=== PATIENT | male | born 1955 | race Caucasian/White ===

== ENCOUNTER 2017-04-05 11:36 | Inpatient (IN) | payer BC, MEDICAID ==
[~2017-04-05] VITALS: Ht 172.7 cm; Wt 95.7 kg
[2017-04-05 11:36] VITALS: BP_SYST 153
[2017-04-05] MEDS ORDERED: NACL 0.9% 1,000 ML IV ONE (12:10)
[2017-04-05 12:41] LABS: BASOPHILS % (AUTO) 0.6 % (0.0-2.0); EOSINOPHILS # (AUTO) 0.2 K/uL (0.0-0.4); EOSINOPHILS % (AUTO) 2.9 % (0.0-4.0); HEMATOCRIT 45.6 % (36-54); HEMOGLOBIN 14.8 g/dL (14.0-18.0); LYMPHOCYTES # (AUTO) 1.3 K/uL (1.0-5.5); LYMPHOCYTES % (AUTO) 15.4 % (20.5-51.5); MEAN CORPUSCULAR HEMOGLOBIN 29 pg (27-31); MEAN CORPUSCULAR HGB CONC 33 % (32-36); MEAN CORPUSCULAR VOLUME 90 fL (79.0-98.0); MONOCYTES # (AUTO) 0.6 K/uL (0.0-1.0); MONOCYTES % (AUTO) 7.6 % (1.7-9.3); NEUTROPHILS # (AUTO) 6.1 K/uL (1.8-7.7); NEUTROPHILS % (AUTO) 73.5 % (40.0-70.0); PLATELET COUNT (AUTO) 207 K/uL (130-430); RED BLOOD CELL COUNT(AUTO) 5.04 MIL/uL (4.2-6.2); RED CELL DISTRIBUTION WIDTH 12.2 % (9.0-15.0); WHITE BLOOD COUNT (AUTO) 8.2 K/uL (4.8-10.8)
[2017-04-05 12:54] LABS: CALCIUM 9.1 mg/dL (8.4-11.0); CREATININE 1.39 mg/dL (0.55-1.30); POTASSIUM 4.2 mmol/L (3.5-5.1)
[2017-04-05 12:58] LABS: ALBUMIN 3.2 g/dL (3.4-4.8); TOTAL BILIRUBIN 0.6 mg/dL (0.0-1.0)
[2017-04-05] MEDS ORDERED: INSULIN REGULAR, HUMAN 10 UNITS/0.1 ML INJ SUBCUT ONE (15:30)
[2017-04-05] MEDS ORDERED: INSULIN REGULAR, HUMAN 10 UNITS/0.1 ML INJ ONE (15:42)
[2017-04-05 15:49] VITALS: BP_SYST 172
[2017-04-05 15:57] VITALS: BP_SYST 172
[2017-04-05 16:28] VITALS: BP_SYST 158
[2017-04-05] MEDS ORDERED: FAMOTIDINE 20 MG TABLET PO SCH (18:00)
[2017-04-05] MEDS: cefTRIAXone 1 GM in D5W 50 ML IV SCH (18:00)
[2017-04-05] MEDS ORDERED: ACETAMINOPHEN 325 MG TABLET PO PRN (18:00)
[2017-04-05] MEDS ORDERED: CARV25TA55 PO (18:10)
[2017-04-05] MEDS ORDERED: PRO40 PO (18:10)
[2017-04-05] MEDS ORDERED: LIP40 PO (18:10)
[2017-04-05] MEDS ORDERED: FURO-150 PO (18:10)
[2017-04-05] MEDS ORDERED: METF1000 PO (18:10)
[2017-04-05] MEDS: cloNIDine HCL 0.1 MG TABLET PO PRN (18:58)
[2017-04-05] MEDS ORDERED: cefTRIAXone 1 GM VIAL ONE (19:20)
[2017-04-05] MEDS ORDERED: ZOLPIDEM TARTRATE 5 MG TABLET PO PRN (19:30)
[2017-04-05] MEDS ORDERED: PANTOPRAZOLE SODIUM 40 MG TAB PO SCH (19:30)
[2017-04-05 19:44] LABS: THYROID STIMULATING HORMONE 0.86 uIu/mL (0.36-3.74)
[2017-04-05 21:15] VITALS: BP_SYST 144
[2017-04-05] MEDS: INSULIN ASPART 100 UNITS/ML, 10 ML VIAL (NovoLOG) SUBCUT PRN (21:39)
[2017-04-05] MEDS: IPRATROPIUM/ALBUTEROL SULFATE 3 ML AMPUL.NEB INH SCH (22:24)
[2017-04-05 22:29] VITALS: BP_SYST 144
[2017-04-06 01:36] VITALS: BP_SYST 158
[2017-04-06 02:49] LABS: BILIRUBIN,URINE NEGATIVE (NEGATIVE); BLOOD, URINE NEGATIVE (NEGATIVE); CLARITY/URINE CLEAR (CLEAR); COLOR,URINE YELLOW (YELLOW); GLUCOSE,URINE 3+ (NEGATIVE); KETONES,URINE NEGATIVE (NEGATIVE); LEUKOCYTE ESTERASE ,URINE NEGATIVE (NEGATIVE); NITRITE, URINE NEGATIVE (NEGATIVE); PROTEIN URINE NEGATIVE (NEGATIVE); UROBILINOGEN,URINE 0.2 (0.2-1.0)
[2017-04-06 03:01] LABS: BACTERIA,URINE MODERATE /HPF (None Seen); CALCIUM OXALATE CRYSTALS,UR 0-10 /HPF (None Seen); HYALINE CASTS, URINE 0-10 /LPF (None Seen); MUCUS,URINE 1+ /LPF (None Seen); YEAST,URINE Few /HPF (None Seen)
[2017-04-06 03:29] VITALS: BP_SYST 160
[2017-04-06 06:26] LABS: BASOPHILS % (AUTO) 0.4 % (0.0-2.0); EOSINOPHILS # (AUTO) 0.4 K/uL (0.0-0.4); EOSINOPHILS % (AUTO) 4.5 % (0.0-4.0); HEMATOCRIT 44.5 % (36-54); HEMOGLOBIN 14.7 g/dL (14.0-18.0); LYMPHOCYTES # (AUTO) 1.6 K/uL (1.0-5.5); LYMPHOCYTES % (AUTO) 19.6 % (20.5-51.5); MEAN CORPUSCULAR HEMOGLOBIN 30 pg (27-31); MEAN CORPUSCULAR HGB CONC 33 % (32-36); MEAN CORPUSCULAR VOLUME 90 fL (79.0-98.0); MONOCYTES # (AUTO) 0.7 K/uL (0.0-1.0); MONOCYTES % (AUTO) 8.4 % (1.7-9.3); NEUTROPHILS # (AUTO) 5.4 K/uL (1.8-7.7); NEUTROPHILS % (AUTO) 67.1 % (40.0-70.0); PLATELET COUNT (AUTO) 205 K/uL (130-430); RED BLOOD CELL COUNT(AUTO) 4.95 MIL/uL (4.2-6.2); RED CELL DISTRIBUTION WIDTH 12.2 % (9.0-15.0); WHITE BLOOD COUNT (AUTO) 8.1 K/uL (4.8-10.8)
[2017-04-06] MEDS: INSULIN ASPART 100 UNITS/ML, 10 ML VIAL (NovoLOG) SUBCUT PRN ×4 (06:33→20:37)
[2017-04-06 07:09] LABS: CALCIUM 8.8 mg/dL (8.4-11.0); CREATININE 1.22 mg/dL (0.55-1.30); POTASSIUM 4.2 mmol/L (3.5-5.1)
[2017-04-06] MEDS: IPRATROPIUM/ALBUTEROL SULFATE 3 ML AMPUL.NEB INH SCH ×3 (07:39→23:24)
[2017-04-06 08:05] VITALS: BP_SYST 127
[2017-04-06] MEDS: PANTOPRAZOLE SODIUM 40 MG TAB PO SCH (08:42)
[2017-04-06 12:14] VITALS: BP_SYST 157
[2017-04-06 16:21] VITALS: BP_SYST 155
[2017-04-06] MEDS: metFORMIN HCL 500 MG TABLET PO SCH (17:29)
[2017-04-06] MEDS: cefTRIAXone 1 GM in D5W 50 ML IV SCH (17:29)
[2017-04-06 19:38] VITALS: BP_SYST 158
[2017-04-06] MEDS: cloNIDine HCL 0.1 MG TABLET PO PRN (20:29)
[2017-04-07 00:36] VITALS: BP_SYST 137
[2017-04-07 03:32] VITALS: BP_SYST 141
[2017-04-07] MEDS: INSULIN ASPART 100 UNITS/ML, 10 ML VIAL (NovoLOG) SUBCUT PRN ×2 (06:25→12:12)
[2017-04-07] MEDS: IPRATROPIUM/ALBUTEROL SULFATE 3 ML AMPUL.NEB INH SCH (07:40)
[2017-04-07 09:00] VITALS: BP_SYST 130
[2017-04-07] MEDS: metFORMIN HCL 500 MG TABLET PO SCH (09:32)
[2017-04-07] MEDS: PANTOPRAZOLE SODIUM 40 MG TAB PO SCH (09:32)
[2017-04-07 11:28] VITALS: BP_SYST 154
[2017-04-07 11:46] VITALS: BP_SYST 155
[2017-04-07 14:12] VITALS: BP_SYST 148
[2017-04-07] MEDS ORDERED: FAMO20TA8 PO (14:31)
[2017-04-07] MEDS ORDERED: CARV25TA55 PO (14:31)
[2017-04-07] MEDS ORDERED: AMOX-426 PO (14:32)
[2017-04-07] MEDS ORDERED: FURO-150 PO (14:32)
[2017-04-07] MEDS ORDERED: LISI10TA5 PO (14:32)
[2017-04-07] MEDS ORDERED: GLU850 PO (14:33)
[2017-04-07] MEDS ORDERED: SITA100T7 PO (14:33)
[2017-04-07] MEDS ORDERED: ALBMDI INH (14:34)
== END 2017-04-07 15:10 | disposition home or self-care (01) | DRG 194 ==
LOC: SED 11:36 → STU 15:16
PROVIDERS: ADMIT Internal Medicine; ATTEND Internal Medicine
DX: J18.9 Pneumonia, unspecified organism (principal); N17.9 Acute kidney failure, unspecified; E11.22 Type 2 diabetes mellitus with diabetic chronic kidney disease; I13.0 Hypertensive heart and chronic kidney disease with heart failure and stage 1 through stage 4 chronic kidney disease, or unspecified chronic kidney disease; I50.9 Heart failure, unspecified; L03.811 Cellulitis of head [any part, except face]; E11.65 Type 2 diabetes mellitus with hyperglycemia; I25.10 Atherosclerotic heart disease of native coronary artery without angina pectoris; N18.9 Chronic kidney disease, unspecified; D18.00 Hemangioma unspecified site; I25.2 Old myocardial infarction; Z87.891 Personal history of nicotine dependence; Z95.5 Presence of coronary angioplasty implant and graft; Z79.899 Other long term (current) drug therapy
CPT/HCPCS: 36415; 71010; 71020-TC; 76700-TC; 80048; 80053; 81000-TC; 82150-TC; 82962; 83605; 83690-TC; 83880; 84443-TC; 84484; 85025; 85610-TC; 85730-TC; 87040-TC; 93005; 94640; 94760; 96360; 96372; 99285; J0696; J1815; J7030; J7050; J7060

== ENCOUNTER 2017-10-01 14:24 | Inpatient (IN) | payer MEDICAID ==
[~2017-10-01] VITALS: Ht 172.7 cm; Wt 108.9 kg
[2017-10-01 14:24] VITALS: BP_SYST 160
[~2017-10-01 14:24] MED LIST: ALBMDI INH; ASPI-862 PO; CARV12.548 PO; FURO-149 PO; LISI-652; METF1000 PO; PRO40 PO; SPIR50TA PO
--- NOTE | 2017-10-01 14:24 | NUR ---
Pt placed to ER bed 04, triaged at bedside, to gown, to monitor. Pt c/o Left-sided C/P with cough and green sputum x 1 week. Pt also c/o upper abdominal pain without N/V/D.
--- NOTE | 2017-10-01 14:30 | NUR ---
Dr. Suh at bedside to assess pt.
--- NOTE | 2017-10-01 15:00 | NUR ---
No needs verbalized. VSS.
[2017-10-01 15:18] LABS: BASOPHILS # (AUTO) 0.1 K/uL (0.0-0.2); BASOPHILS % (AUTO) 0.8 % (0.0-2.0); EOSINOPHILS # (AUTO) 0.2 K/uL (0.0-0.4); EOSINOPHILS % (AUTO) 2.8 % (0.0-4.0); HEMATOCRIT 42.3 % (36-54); HEMOGLOBIN 14.1 g/dL (14.0-18.0); LYMPHOCYTES # (AUTO) 1.6 K/uL (1.0-5.5); MEAN CORPUSCULAR HEMOGLOBIN 30 pg (27-31); MEAN CORPUSCULAR HGB CONC 33 % (32-36); MEAN CORPUSCULAR VOLUME 90 fL (79.0-98.0); MONOCYTES # (AUTO) 0.7 K/uL (0.0-1.0); MONOCYTES % (AUTO) 10.9 % (1.7-9.3); NEUTROPHILS % (AUTO) 61.5 % (40.0-70.0); PLATELET COUNT (AUTO) 229 K/uL (130-430); RED BLOOD CELL COUNT(AUTO) 4.69 MIL/uL (4.2-6.2); RED CELL DISTRIBUTION WIDTH 12.9 % (9.0-15.0); WHITE BLOOD COUNT (AUTO) 6.6 K/uL (4.8-10.8)
--- NOTE | 2017-10-01 15:42 | NUR ---
No needs verbalized at this time.
[2017-10-01 15:49] LABS: BILIRUBIN,URINE NEGATIVE (NEGATIVE); BLOOD, URINE NEGATIVE (NEGATIVE); CLARITY/URINE CLEAR (CLEAR); COLOR,URINE YELLOW (YELLOW); GLUCOSE,URINE 3+ (NEGATIVE); KETONES,URINE NEGATIVE (NEGATIVE); LEUKOCYTE ESTERASE ,URINE NEGATIVE (NEGATIVE); NITRITE, URINE NEGATIVE (NEGATIVE); PH,URINE 5.5 (5.0-8.0); PROTEIN URINE NEGATIVE (NEGATIVE); UROBILINOGEN,URINE 0.2 (0.2-1.0)
[2017-10-01 15:56] LABS: BARBITURATE, URINE NEGATIVE (NEG <=200); BENZODIAZEPINE, URINE NEGATIVE (NEG <=150); CANNABINOID, URINE NEGATIVE (NEG <=50); COCAINE, URINE NEGATIVE (NEG <=150); METHAMPHETAMINES SCREEN,URINE NEGATIVE (NEG <=500); OPIATE, URINE NEGATIVE (NEG <=100); PHENCYCLIDINE SCREEN,URINE NEGATIVE (NEG <=25); UR TRICYCLIC ANTIDEPRESSANTS NEGATIVE (NEG <=300); URINE AMPHETAMINE NEGATIVE (NEG <=500); URINE METHADONE NEGATIVE (NEG <=200); URINE OXYCODONE SCREEN NEGATIVE (NEG <=100); URINE PROPOXYPHENE SCREEN NEGATIVE (NEG <=300)
[2017-10-01 16:09] LABS: ANION GAP 5 (5-15); CALCIUM 9.1 mg/dL (8.4-11.0); CHLORIDE 100 mmol/L (98-107); CREATININE 1.28 mg/dL (0.55-1.30); GLUCOSE 343 mg/dL (70-99); POTASSIUM 3.9 mmol/L (3.5-5.1); SODIUM SERUM 132 mmol/L (136-145); UREA NITROGEN, BLOOD 22 mg/dL (8-21)
[2017-10-01 16:12] LABS: GFR AFRICAN AMERICAN 73 mL/min (>90)
[2017-10-01 16:17] LABS: ALANINE AMINOTRANSFERASE 56 U/L (12-78); ALBUMIN 3.3 g/dL (3.4-4.8); ASPARTATE AMINOTRANSFERASE 34 U/L (10-37); LIPASE 154 U/L (73-393); TOTAL BILIRUBIN 0.6 mg/dL (0.0-1.0)
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
--- NOTE | 2017-10-01 16:24 | NUR ---
Per patients facesheet, pt has [facility]/ [employer] insurance and no primary physician. Paged pharmacy innovation assistant physician, Dr Falcon for admission.
[2017-10-01] MEDS ORDERED: SITA100T7 PO (16:27)
--- NOTE | 2017-10-01 16:27 | NUR ---
Med Rec updated with information from past visit. Pt was able to recall medications and verifiy.
[2017-10-01] MEDS ORDERED: ASPIRIN 325 MG TABLET PO ONE (16:30)
[2017-10-01] MEDS ORDERED: NS 500 ML IV ONE (16:30)
[2017-10-01 16:36] LABS: BACTERIA,URINE FEW /HPF (None Seen); MUCUS,URINE None Seen /LPF (None Seen); RBC,URINE 0-3 /HPF (0-3)
--- NOTE | 2017-10-01 16:40 | NUR ---
Patient c/o pain to left chest, that increases with movement, breathing, and inspiration, Dr Suh notified of patinet's complaint. meat butcher continues to show, sinus rhythm without difficulty. IV infusing without difficulty, no redness or swelling noted at site. Awaiting call back from admitting
--- NOTE | 2017-10-01 16:46 | NUR ---
Paging Dr. Falcon for a second time. Spoke with Coco.
--- NOTE | 2017-10-01 17:13 | NUR ---
Paged Dr. Falcon for a third time. Spoke with Debbie
--- NOTE | 2017-10-01 17:21 | NUR ---
Paged Dr. Falcon for a forth time for admission. Spoke with Olga.
--- NOTE | 2017-10-01 17:32 | NUR ---
Paged Dr. Falcon for the fifth time. Spoke with Olga.
--- NOTE | 2017-10-01 17:45 | NUR ---
Patient will be admitted to care of Dr Falcon. Admitted to tele unit. Will go to room 106-A. Belongings list completed. Summary report printed. Report will be given at bedside. Transfer to tele room 106-A via ACLS protocol. Licensed nurse present. IV present no signs or symptoms of infiltration.
--- NOTE | 2017-10-01 17:50 | NUR ---
ADMISSION NOTE Received patient from ER via lacho, received report from INFORMATICA MDM DEVELOPER. Patient admitted with diagnosis of CHF. Patient oriented to hospital routine, call light, toileting and safety-patient verbalized understanding.
[2017-10-01 17:57] VITALS: BP_SYST 182
--- NOTE | 2017-10-01 18:10 | NUR ---
ADMISSION: The patient, LUX ELDER, 61 y/o, M admitted by SHANELLE SANDHU MD, was given written information regarding hospital policies, unit procedures and contact persons. Valuables were checked and .
--- NOTE | 2017-10-01 18:12 | NUR ---
CARDIOLOGY CONSULT WAS CALLED TO DR SPARKS, RE: CHF. SPOKE TO HOWIE
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
--- NOTE | 2017-10-01 18:45 | NUR ---
PT CARE TRANSFER / CLOSING NOTE REPORT IS RECEIVED FROM ADMISSION NURSE. PT IS AWAKE, ALERT, AND ORIENTED X4. PT DENIES ANY PAIN. NO SIGNS OR SYMPTOMS OF DISTRESS OR SOB NOTED. PT RECEIVE DINNER TRAY AND IS CURRENTLY EATING. CURRENT NEEDS ARE MET. BED IS AT LOWEST POSITION, CALL LIGHT WITHIN REACH, TWO SIDE RAILS UP, BED ALARM IS ON. WILL CONTINUE TO MONITOR UNTIL CARE AND REPORT IS GIVEN TO PERSONAL INJURY ATTORNEY NURSE.
--- NOTE | 2017-10-01 18:50 | NUR ---
High blood pressure 182/115 HR 98, patient denies feeling dizzy, denies chest pains, informed Rosy ORR, she will follow up with reassessment and informing MD.
[2017-10-01] MEDS ORDERED: DEXTROSE 50% JECT 50 ML DISP.SYRIN IVP PRN (19:30)
[2017-10-01] MEDS ORDERED: cloNIDine HCL 0.1 MG TABLET PO PRN (19:45)
[2017-10-01] MEDS ORDERED: ENALAPRILAT DIHYDRATE 1.25 MG/ML VIAL IVP PRN (19:45)
[2017-10-01] MEDS ORDERED: hydrALAZINE HCL 20 MG/ML VIAL IVP PRN (19:45)
--- NOTE | 2017-10-01 20:26 | NUR ---
Opening notes Patient resting in bed. No acute distress or SOB noted. Breathing even and unlabored. Patient is AAOx4 and able to make needs known. Patient has 2 left hand old lacerations. Wounds cleaned and bandages applied. denies any pain at this time. Educated patient on unit and call light and when to use it. Patient verbalized understanding. HOB elevated elevated for comfort. All needs met. Bed in lowest position with bed alarm on and call light with patient.
[2017-10-01] MEDS ORDERED: FUROSEMIDE 40 MG TABLET ONE (20:46)
[2017-10-01] MEDS: CARVEDILOL 12.5 MG TABLET (COREG) PO SCH (20:51)
[2017-10-01] MEDS: LISINOPRIL 5 MG TABLET PO SCH (20:52)
[2017-10-01] MEDS: FUROSEMIDE 40 MG/4 ML VIAL IVP SCH (21:17)
[2017-10-01 22:01] VITALS: BP_SYST 153
--- NOTE | 2017-10-01 22:49 | NUR ---
RN walker Patient in bed sleeping. No acute distress noted. Breathing even and unlabored. Bed in lowest position and call light with patient.
--- NOTE | 2017-10-02 00:35 | NUR ---
DOMINGA cardoso Patient in bed sleeping. No acute distress noted. Breathing even and unlabored. Bed in lowest position with HOB elevated to 45 degrees and call light with patient.
[2017-10-02 01:02] VITALS: BP_SYST 136
[2017-10-02] MEDS: INSULIN REGULAR, HUMAN 100 UNITS/ML, 10 ML VIAL (novoLIN R) SUBCUT PRN ×5 (03:35→23:26)
--- NOTE | 2017-10-02 05:34 | NUR ---
RN notes RN walker Patient in bed sleeping. No acute distress noted. Breathing even and unlabored. Bed in lowest position with HOB elevated to 45 degrees and call light with patient. All needs met at this time.
--- NOTE | 2017-10-02 06:40 | NUR ---
Closing notes/ Blood sugar Patient's blood sugar was 239 with insulin given per sliding scale. Skin warn and dry. No acute distress noted. patient requested to have O2 put on. 2L NC. Bed in lowest position with HOB elevated to 45 degrees and call light with patient. All needs met at this time. Hourly and PRN rounding done throughout shift. Will endorse to day shift patient's plan of care.
[2017-10-02 07:57] VITALS: BP_SYST 137
--- NOTE | 2017-10-02 08:00 | NUR ---
Note Pt sitting up in bed with his O2 on at 2L/nc. Tele unit attached and intact at this time. No SOB/resp distress or chest pain/discomfort noted at this time. IV in left hand intact and patent at this time. No needs noted. Call light within reach.
[2017-10-02] MEDS ORDERED: FUROSEMIDE 40 MG TABLET PO SCH (09:00)
[2017-10-02] MEDS: FUROSEMIDE 40 MG/4 ML VIAL IVP SCH (09:08)
[2017-10-02] MEDS: ASPIRIN 325 MG TABLET (ECOTRIN) PO SCH (09:08)
[2017-10-02] MEDS: PANTOPRAZOLE SODIUM 40 MG TAB PO SCH (09:08)
[2017-10-02] MEDS: SPIRONOLACTONE 50 MG TABLET (ALDACTONE) PO SCH (09:09)
[2017-10-02] MEDS: CARVEDILOL 12.5 MG TABLET (COREG) PO SCH ×2 (09:09→20:53)
[2017-10-02] MEDS ORDERED: FUROSEMIDE 40 MG/4 ML VIAL ONE (09:09)
[2017-10-02] MEDS ORDERED: LORazepam 2 MG/ML VIAL IVP PRN (09:15)
[2017-10-02] MEDS ORDERED: THIAMINE HCL 100 MG TABLET PO ONE (09:15)
[2017-10-02] MEDS ORDERED: DEXTROSE 50% JECT 50 ML DISP.SYRIN IVP PRN (09:15)
[2017-10-02] MEDS: FOLIC ACID 1 MG TABLET PO ONE ×2 (09:45→09:52)
--- NOTE | 2017-10-02 10:10 | NUR ---
Note Pt was seen and assessed by Dr Falcon at 0910am and Dr Gonzales 0935am. No needs noted. Pt took all his PO medications without difficulty. Dressing on left finger CDI all shift. Call light within reach.
[2017-10-02 12:40] VITALS: BP_SYST 126
--- NOTE | 2017-10-02 13:00 | NUR ---
Note Pt has been resting in bed all shift. Pt ambulates to restroom independently. Pt stable at this time. Has no chest pain/discomfort at this time. No needs noted. Call light within reach.
--- NOTE | 2017-10-02 16:15 | NUR ---
Note Pt resting in bed - denies any needs at this time. VSS. Tele unit attached and intact at this time. Call light within reach.
[2017-10-02 17:15] VITALS: BP_SYST 141
--- NOTE | 2017-10-02 18:40 | NUR ---
Note Pt sitting up in bed eating his dinner. Tele unit attached and intact at this time. IV in left forearm intact and patent at this time. Pt was checked on q1' and PRN for needs and care all shift. No SOB/resp distress or chest pain/discomfort noted at this time. No needs noted. Call light within reach.
[2017-10-02 20:00] VITALS: BP_SYST 108
--- NOTE | 2017-10-02 20:00 | NUR ---
initial notes pt. received resting in bed, alert and oriented. able to make needs known. no s/s of sob or distress. vss. no complaints of pain. iv patent and intact. pt states he can ambulate with steady gait. does not want bed alarm on at this time.education provided. encouraged to use the call light for any assistance. pt verbalizes understanding. will cont. to monitor for changes. safety and fall precautions in place, call light in reach.
[2017-10-02] MEDS: LISINOPRIL 5 MG TABLET PO SCH (20:53)
--- NOTE | 2017-10-02 22:20 | NUR ---
rounds pt. resting in bed watching television. no signs of acute distress. no complaints of pain. will cont. to monitor for changes.safety and fall precautions in place. call light in reach.
--- NOTE | 2017-10-03 00:17 | NUR ---
rounds pt. resting in bed with eyes closed. chest rise and fall noted. no s/s of sob or distress. no facial grimacing indicating pain. will cont. to monitor for changes. safety and fall precautions in place, call light in reach.
[2017-10-03 00:32] VITALS: BP_SYST 136
--- NOTE | 2017-10-03 02:05 | NUR ---
ROUNDS PT. RESTING WITH EYES CLOSED. CHEST RISE AND FALL NOTED. NO SIGNS OF ACUTE DISTRESS. WILL CONT. TO MONITOR. CALL LIGHT IN REACH. BED ALARM ON.
--- NOTE | 2017-10-03 04:43 | NUR ---
ROUNDS PT ASSISTED TO THE RESTROOM, VOIDED FREELY. BACK TO BED AND IN A COMFORTABLE POSITION. NO SIGNS OF ACUTE DISTRESS. BED ALARM ACTIVATED. WILL CONT. TO MONITOR. CALL LIGHT IN REACH.
[2017-10-03] MEDS: INSULIN REGULAR, HUMAN 100 UNITS/ML, 10 ML VIAL (novoLIN R) SUBCUT PRN ×2 (05:55→11:50)
--- NOTE | 2017-10-03 06:47 | NUR ---
CLOSING NOTES PT. UP TO THE RESTROOM, STATES HE WANTS TO PERFORM MORNING HYGIENE. STEADY GAIT NOTED. PT. DENIES FEELING WEAK OR DIZZY. ENCOURAGED TO CALL FOR ASSISTANCE, VERBALIZES UNDERSTANDING. PT. DENIES PAIN OR DISCOMFORT. BLOOD SUGAR WAS COVERED WITH REGULAR INSULIN PER SLIDING SCALE ORDERS. ALL NECESSARY NEEDS WERE MET THROUGHOUT THE SHIFT, SAFETY AND FALL PRECAUTIONS WERE MAINTAINED. WILL ENDORSE CARE TO AM NURSE.
[2017-10-03 07:02] LABS: BASOPHILS # (AUTO) 0.1 K/uL (0.0-0.2); BASOPHILS % (AUTO) 1.5 % (0.0-2.0); EOSINOPHILS # (AUTO) 0.2 K/uL (0.0-0.4); EOSINOPHILS % (AUTO) 3.3 % (0.0-4.0); HEMOGLOBIN 14.9 g/dL (14.0-18.0); LYMPHOCYTES # (AUTO) 1.4 K/uL (1.0-5.5); MONOCYTES # (AUTO) 0.7 K/uL (0.0-1.0)
[2017-10-03 07:09] LABS: HEMATOCRIT 45.5 % (36-54); LYMPHOCYTES % (AUTO) 18.8 % (20.5-51.5); MEAN CORPUSCULAR HEMOGLOBIN 30 pg (27-31); MEAN CORPUSCULAR HGB CONC 33 % (32-36); MEAN CORPUSCULAR VOLUME 92 fL (79.0-98.0); MONOCYTES % (AUTO) 9.4 % (1.7-9.3); PLATELET COUNT (AUTO) 227 K/uL (130-430); RED BLOOD CELL COUNT(AUTO) 4.94 MIL/uL (4.2-6.2); RED CELL DISTRIBUTION WIDTH 13.2 % (9.0-15.0); WHITE BLOOD COUNT (AUTO) 7.4 K/uL (4.8-10.8)
[2017-10-03 07:40] LABS: CALCIUM 9.2 mg/dL (8.4-11.0); CREATININE 1.23 mg/dL (0.55-1.30); POTASSIUM 4.4 mmol/L (3.5-5.1); THYROID STIMULATING HORMONE 1.38 uIu/mL (0.34-4.82); TOTAL BILIRUBIN 0.6 mg/dL (0.0-1.0)
--- NOTE | 2017-10-03 07:56 | NUR ---
Nutrition Update Leonel Scale 18 noted. Pt admitted for CHF Diet: 2gm Na diet BMI: 36.5 kg/m2 RD to follow per nutrition care standards
[2017-10-03 08:00] VITALS: BP_SYST 127
--- NOTE | 2017-10-03 08:00 | NUR ---
Note Pt sitting up in bed eating his breakfast. No SOB/resp distress or chest pain/discomfort noted at this time. IV in left wrist intact and patent at this time. Tele unit attached and intact at this time. No needs noted. Call light within reach.
[2017-10-03] MEDS: FUROSEMIDE 40 MG/4 ML VIAL IVP SCH (08:50)
[2017-10-03] MEDS: ASPIRIN 325 MG TABLET (ECOTRIN) PO SCH (08:51)
[2017-10-03] MEDS: PANTOPRAZOLE SODIUM 40 MG TAB PO SCH (08:51)
[2017-10-03] MEDS: SPIRONOLACTONE 50 MG TABLET (ALDACTONE) PO SCH (08:51)
[2017-10-03] MEDS: CARVEDILOL 12.5 MG TABLET (COREG) PO SCH (08:52)
[2017-10-03] MEDS ORDERED: THIAMINE HCL 100 MG TABLET PO SCH (09:00)
[2017-10-03] MEDS ORDERED: FOLIC ACID 1 MG TABLET PO SCH (09:00)
--- NOTE | 2017-10-03 10:05 | NUR ---
Note Dr Gonzales on the floor and assessment completed. Pt maybe discharged today from cardiac view. Dr Falcon to write the prescriptions for discharge. Pt resting in bed. No needs noted. Call light within reach.
--- NOTE | 2017-10-03 11:35 | NUR ---
Social Service Note: STEEL LAYOUT WORKER met with pt at bedside; pt was reviewing [facility] information. Pt states that he is going to the [facility]. Pt states that he will take the bus, pt states that he knows how to get to the [facility]. STEEL LAYOUT WORKER provided pt with the homeless assistance resources, [facility], [employer], [facility], and outpatient mental health providers. STEEL LAYOUT WORKER has placed homeless waiver on pt's chart. Pt states that after lunch he would like to leave to be able to get to the [facility] on time. STEEL LAYOUT WORKER alerted charge nurse that pt needs to be discharged after lunch to get to the [facility].
--- NOTE | 2017-10-03 11:46 | NUR ---
ATTENDING MD DR SANDHU WAS CALLED RE: REQUEST FOR NEW PRESCRIPTION SINCE HIS MEDICATIONS WERE ALL STOLEN SPOKE TO DANAE
[2017-10-03 12:00] VITALS: BP_SYST 110
[2017-10-03 12:08] VITALS: BP_SYST 120
--- NOTE | 2017-10-03 12:25 | NUR ---
Note Pt's tele unit was dc'd and returned to case monitor. Pt's prescription written by Dr Falcon at this time and to be given to pt with discharge paperwork. No needs noted. Pt stable at this time. Call light within reach. Pt sitting on side of bed eating his lunch at this time.
--- NOTE | 2017-10-03 12:45 | NUR ---
Note Pt's IV in left wrist was dc'd and site has no swelling/redness/bleeding/drainage noted at this time. Pt was given discharge instructions, questions/concerns were answered at this time. Pt also given prescription at this time. No SOB/resp distress or chest pain/discomfort noted at this time. Pt stable. Pt packed all his belongings and checked side table/drawers for belongings. Pt dressed in street clothes and has his 3 bags at bedside. Pt off the floor with all his belongings and discharge paperwork.
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
== END 2017-10-03 12:45 | disposition home or self-care (01) | DRG 194 ==
LOC: SED 14:24 → STU 17:39
PROVIDERS: ADMIT Internal Medicine Hospice and Palliative Medicine; ATTEND Internal Medicine Hospice and Palliative Medicine
DX: I11.0 Hypertensive heart disease with heart failure (principal); E11.42 Type 2 diabetes mellitus with diabetic polyneuropathy; I42.6 Alcoholic cardiomyopathy; I42.7 Cardiomyopathy due to drug and external agent; E66.8 Other obesity; I50.43 Acute on chronic combined systolic (congestive) and diastolic (congestive) heart failure; F10.10 Alcohol abuse, uncomplicated; E11.9 Type 2 diabetes mellitus without complications; G89.4 Chronic pain syndrome; I25.10 Atherosclerotic heart disease of native coronary artery without angina pectoris; B19.20 Unspecified viral hepatitis C without hepatic coma; K21.9 Gastro-esophageal reflux disease without esophagitis; T50.905A Adverse effect of unspecified drugs, medicaments and biological substances, initial encounter; Y92.89 Other specified places as the place of occurrence of the external cause; Z95.5 Presence of coronary angioplasty implant and graft; I25.2 Old myocardial infarction; Z59.0 Homelessness; Z87.891 Personal history of nicotine dependence; Z91.14 Patient's other noncompliance with medication regimen; Z79.899 Other long term (current) drug therapy; Z79.84 Long term (current) use of oral hypoglycemic drugs; Z79.82 Long term (current) use of aspirin; Z68.36 Body mass index [BMI] 36.0-36.9, adult; Z71.41 Alcohol abuse counseling and surveillance of alcoholic; Z71.51 Drug abuse counseling and surveillance of drug abuser
CPT/HCPCS: 36415; 71045; 80053; 80307; 81000-TC; 82962; 83036; 83690-TC; 83880; 84443-TC; 84484; 85025; 93005; 96360; 99285; J1815; J1940; J7040